=== PATIENT | female | born 1965 | race Caucasian/White ===

== ENCOUNTER → 2023-10-17 07:46 | Outpatient (REF) | payer OTHER, SELFPAY | LOC: HWRAD 07:46 | PROVIDERS: ATTENDING PHYSICIAN Physician Assistant Medical | DX: R10.11 Right upper quadrant pain (principal); M25.50 Pain in unspecified joint | CPT/HCPCS: 76700 ==

== ENCOUNTER → 2023-11-28 07:39 | Outpatient (REF) | payer OTHER, SELFPAY | LOC: HWRAD 07:39 | PROVIDERS: ATTENDING PHYSICIAN Internal Medicine Rheumatology; FAMILY PHYSICIAN Physician Assistant Medical | DX: R59.1 Generalized enlarged lymph nodes (principal); R79.82 Elevated C-reactive protein (CRP); M19.90 Unspecified osteoarthritis, unspecified site; M79.643 Pain in unspecified hand | CPT/HCPCS: 73130; 76536 ==

== ENCOUNTER 2024-01-11 12:02 | Emergency (ER) | payer OTHER, SELFPAY ==
[2024-01-11 12:06] VITALS: BP 164/99
[2024-01-11 13:00] VITALS: BP 127/87
--- NOTE | 2024-01-11 13:10 | ED.GENMED ---
History of Present Illness
General
Chief Complaint: Abdominal Pain
Source: patient
Time Seen by Provider: 01/11/24 12:56
History of Present Illness
History of Present Illness:
58yo female with a history of ALDAIR on CPAP, anxiety, and degenerative disc disease presenting for evaluation of left rib pain x 4-5 days. She reports a sharp, stabbing pain underneath her left breast. Pain radiates to the LUQ, L upper back, and L
upper chest. Pain worsens with breathing and palpation. She denies any injury to the area. No prior history of similar pains. She tried Flexeril without any relief. She is also experiencing indigestion. She is otherwise asymptomatic and denies any
fevers, chills, vomiting, dysuria, diarrhea, constipation.
Past History
Past History
ED Past Medical History: None
ED Past Surgical History: Other (laparoscopy for endometriosis )
Social History
Tobacco: Former smoker
Alcohol: Chronic alcoholic
Drug: None
Personal:
Living: with family
Employment: Employed
Family History
Family History: Other (non contributory )
Phy Exam
Physical Exam
Physical Exam:
+Reproducible tenderness in L anterior and posterior ribcage. No skin changes or crepitus. Lungs CTA bilaterally. +Mild tenderness in LUQ.
General Physical Exam
General Presentation: well appearing and no apparent distress
General age: appears stated age
General Skin: warm and dry
General Habitus: normal
General Mental: alert
Cardiovascular Exam
Cardiovascular Exam: regular rate/rhythm
Heart Sounds: normal
Pulmonary Exam
Pulmonary Exam: lungs clear, no respiratory distress, no crackles and no wheezing
Gastrointestinal Exam
Gastrointestinal Exam: soft and non distended
Palpation: left upper quadrant: Mild tenderness
Course
Orders/Labs/Results
Orders:
Orders
01/11/24 12:11
ECG [Electrocardiogram (*1)] Urgent
Reason for Study: Chest Pain
EKG- Treatment ONCE
01/11/24 13:09
Ketorolac [Toradol] 15 mg IV NOW STA
01/11/24 13:10
Cardiac Monitoring- Treatment ONCE
CR Chest - 2 Views Urgent
Comment:
Reason For Exam: L rib pain
01/11/24 14:25
Basic Metabolic Panel Routine
Complete Blood Count/With Diff Urgent
D-Dimer Urgent
Lipase Urgent
Troponin I Urgent
01/11/24 14:57
CMP [Comprehensive Metabolic Panel] Urgent
Phosphorus Urgent
Comment: ADDON
Abnormal Lab Results
01/11/24 01/11/24
14:25 14:57
RBC 3.54 L 10^6/uL
(4.20-5.40)
Hct 34.1 L %
(37.0-47.0)
MCH 34.2 H pg
(27.0-31.0)
Phosphorus 5.3 H mg/dl
(2.5-4.5)
01/11/24 14:25
01/11/24 14:57
Vital Signs
Initial and Last Documented VS:
Initial Vital Signs
Temp Pulse Resp BP Pulse Ox
97.8 F 81 20 164/99 100
01/11/24 12:06 01/11/24 12:06 01/11/24 12:06 01/11/24 12:06 01/11/24 12:06
Last Documented Vital Signs
Temp Pulse Resp BP Pulse Ox
97.8 F 74 13 143/89 96
01/11/24 12:06 01/11/24 16:00 01/11/24 16:00 01/11/24 16:00 01/11/24 16:00
MDM/Problems Addressed
Differential Diagnosis Includes:
58yoF here with L rib/LUQ pain x 4-5 days. Pain is worse with breathing. Also c/o indigestion. She is afebrile and hemodynamically stable. She is well appearing in no distress. There is reproducible tenderness in the L ribcage on exam. No skin
changes present. Lungs CTA bilaterally. Differential diagnosis includes but is not limited to: Musculoskeletal, pneumonia, pneumothorax, pulmonary embolism, ACS
Initial ED plan: Check cardiac labs, EKG, lipase, D-dimer, and chest x-ray. IV Toradol and reassess.
*Critical Care Note
Total Time (30-74mins, 75-104mins- exclusive of procedures): Not Applicable
Update Note
Update Note:
Workup overall unremarkable. EKG shows normal sinus rhythm without ischemic changes and troponin is normal. D-dimer normal making PE very unlikely. Lipase within normal limits. Chest x-ray clear without acute abnormalities. Patient feeling
significantly improved on reassessment. Given improvement with Toradol and reproducibility of pain, suspect musculoskeletal origin of symptoms. 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
injuries.
Supportive care discussed. Advise follow-up with PCP and return to the ED with any worsening symptoms. Patient expressed understanding and is agreeable to plan. Patient discharged in stable condition.
ED Attending Note
-
Portions of this chart may have been created with voice recognition software.� Occasional wrong word or��sound alike� substitutions may have occurred due to the inherent limitations of voice recognition software.
Discharge Plan
Departure
Patient Disposition: Home (Routine Discharge)
Date of Disposition: 01/11/24
Time of Disposition: 16:10
Patient with high blood pressure during this ER visit?: Yes
Discharge Problem:
Chest wall pain
Instructions: Costochondritis
Prescriptions:
No Action
venlafaxine [Effexor] 75 MG tablet
75 mg PO DAILY
hydroxyzine pamoate [Vistaril] 25 MG capsule
25 mg PO HSPRN PRN (Reason: sleep)
aripiprazole [Abilify] 5 MG tablet
2.5 mg PO DAILY
Referrals:
Ana Tate PA-C [Family Provider] -
Activity Restrictions/Additional Instructions:
Apply heat to affected area. Take ibuprofen 600mg and Tylenol 650mg every 6 hours as needed for pain.
Please follow-up with your family doctor. Return to the ER with any new or worsening symptoms.
Interventions
Interventions:
*Risk Screen - Suicide Last Done: 01/11/24 13:19
*General Assessment Last Done: 01/11/24 12:10
*Neglect/Abuse Screening Last Done: 01/11/24 13:19
ED- Fall Risk Assessment Last Done: 01/11/24 13:19
*ED COVID-19 Vaccine History Last Done: 01/11/24 12:10
*Nursing Disposition Last Done: 01/11/24 16:22
GF-Zxbtfy-Fmfyqqppey Assessment Last Done: 01/11/24 13:19
Discharge Date and Time
Discharge Date/Time: 01/11/24 16:22
Print Language: MALAY
[2024-01-11 13:19] VITALS: BMI 35.5
[2024-01-11 14:06] VITALS: BP 145/94
[2024-01-11] MEDS: TORADOL 15 MG IV (14:28)
[2024-01-11 14:35] LABS: % Basophils 0.6 % (0-2); % Eosinophils 1.3 % (0-6); % Immature Granulocytes 0.2 % (0-0.5); % Lymphocytes 23.9 % (20.5-51.1); % Monocytes 5.3 % (1.7-9.3); % Neutrophils 68.7 % (42.2-75.2); Absolute Eosinophils 0.1 10^3/uL (0-0.7); Absolute Lymphocytes 1.5 10^3/uL (1.2-3.4); Absolute Monocytes 0.3 10^3/uL (0.1-0.6); Absolute Neutrophils 4.3 10^3/uL (1.4-6.5); Hematocrit 34.1 % (37.0-47.0); Hemoglobin 12.1 g/dL (12.0-16.0); Mean Corp Hgb Conc. 35.5 g/dL (33.0-37.0); Mean Corpuscular Hgb 34.2 pg (27.0-31.0); Mean Corpuscular Volume 96.3 fL (81.0-99.0); Mean Platelet Volume 9.5 fL (7.4-10.4); Nucleated Red Blood Cells % 0 %; Platelet Count 217 10^3/uL (130-400); Red Blood Cell Count 3.54 10^6/uL (4.20-5.40); Red Cell Dist. Width 12.7 % (11.5-14.5); White Blood Cell Count 6.2 10^3/uL (4.8-10.8)
[2024-01-11 14:56] LABS: Lipase 67 U/L (23-300)
[2024-01-11 14:58] LABS: Blood Urea Nitrogen 9 mg/dl (7-17); Calcium 10.1 mg/dl (8.4-10.2); Carbon Dioxide 27 mmol/L (22-30); Chloride 104 mmol/L (98-107); Estimated Creatinine Clearance 93 ml/min; Glucose 88 mg/dl (70-99); Potassium 4.1 mmol/L (3.5-5.1); Sodium 135 mmol/L (135-145); Troponin I < 0.012 ng/ml; eGFR > 60.00
[2024-01-11 15:00] VITALS: BP 144/96
[2024-01-11 15:08] LABS: D-Dimer < 0.27 ug/mlFEU (0.00-0.50)
[2024-01-11 15:29] LABS: ALT (SGPT) 26 U/L (0-35); AST (SGOT) 30 U/L (14-36); Albumin 4.1 g/dl (3.5-5.0); Alkaline Phosphatase 83 U/L (38-126); Blood Urea Nitrogen 10 mg/dl (7-17); Calcium 10.2 mg/dl (8.4-10.2); Carbon Dioxide 27 mmol/L (22-30); Chloride 104 mmol/L (98-107); Estimated Creatinine Clearance 93 ml/min; Glucose 86 mg/dl (70-99); Potassium 4.3 mmol/L (3.5-5.1); Sodium 136 mmol/L (135-145); Total Bilirubin 0.5 mg/dl (0.2-1.3); Total Protein 6.3 g/dl (6.3-8.2); eGFR > 60.00
[2024-01-11 15:44] LABS: Phosphorus 5.3 mg/dl (2.5-4.5)
[2024-01-11 16:00] VITALS: BP 143/89
== END 2024-01-11 16:22 | disposition home or self-care (01) ==
LOC: EMR 12:02
PROVIDERS: Physician Assistant; EMERGENCY PHYSICIAN Student in an Organized Health Care Education/Training Program; FAMILY PHYSICIAN Physician Assistant Medical
DX: R07.89 Other chest pain (principal); F41.9 Anxiety disorder, unspecified; G47.33 Obstructive sleep apnea (adult) (pediatric); Z87.891 Personal history of nicotine dependence
CPT/HCPCS: 99283; 96374; 71046; 80048; 80053; 83690; 84100; 84484; 85025; 85379; 93005

== ENCOUNTER → 2024-01-15 11:49 | Outpatient (REF) | payer OTHER, SELFPAY | LOC: HWWDC 11:49 | PROVIDERS: ATTENDING PHYSICIAN Physician Assistant Medical | DX: Z12.31 Encounter for screening mammogram for malignant neoplasm of breast (principal) | CPT/HCPCS: 77063; 77067 ==

== ENCOUNTER → 2024-03-12 09:00 | Outpatient (REF) | payer OTHER, SELFPAY ==
[2024-03-12 10:28] LABS: % Basophils 0.6 % (0-2); % Eosinophils 0.3 % (0-6); % Immature Granulocytes 0.7 % (0-0.5); % Lymphocytes 21.3 % (20.5-51.1); % Monocytes 4.2 % (1.7-9.3); % Neutrophils 72.9 % (42.2-75.2); Absolute Immature Granulocytes 0.1 10^3/uL (0-0.05); Absolute Lymphocytes 1.5 10^3/uL (1.2-3.4); Absolute Monocytes 0.3 10^3/uL (0.1-0.6); Absolute Neutrophils 5.2 10^3/uL (1.4-6.5); Hematocrit 33.5 % (37.0-47.0); Hemoglobin 11.8 g/dL (12.0-16.0); Mean Corp Hgb Conc. 35.2 g/dL (33.0-37.0); Mean Corpuscular Volume 96.5 fL (81.0-99.0); Nucleated Red Blood Cells % 0 %; Platelet Count 217 10^3/uL (130-400); Red Blood Cell Count 3.47 10^6/uL (4.20-5.40); Red Cell Dist. Width 13.2 % (11.5-14.5); White Blood Cell Count 7.1 10^3/uL (4.8-10.8)
[2024-03-12 11:04] LABS: Erythrocyte Sed Rate 13 mm/hour (0-20)
[2024-03-12 11:52] LABS: ALT (SGPT) 22 U/L (0-35); AST (SGOT) 29 U/L (14-36); Albumin 4.7 g/dl (3.5-5.0); Alkaline Phosphatase 87 U/L (38-126); Blood Urea Nitrogen 15 mg/dl (7-17); Calcium 9.6 mg/dl (8.4-10.2); Carbon Dioxide 19 mmol/L (22-30); Chloride 105 mmol/L (98-107); Glucose 86 mg/dl (70-99); Potassium 4.3 mmol/L (3.5-5.1); Sodium 140 mmol/L (135-145); Total Bilirubin 0.5 mg/dl (0.2-1.3); Total Protein 6.9 g/dl (6.3-8.2); eGFR > 60.00
[2024-03-12 18:26] LABS: Hepatitis B Surface Antigen Negative (Negative)
[2024-03-12 18:44] LABS: Hepatitis B Core Ab, Total Negative (Negative); Hepatitis B Surface Antibody Negative; Hepatitis C Antibody Negative (Negative)
[2024-03-14 10:37] LABS: Quantiferon Mitogen minus NIL 4.73 IU/mL; Quantiferon TB Gold Plus Negative (Negative)
== END ==
LOC: RAD 09:00
PROVIDERS: ATTENDING PHYSICIAN Internal Medicine Rheumatology; FAMILY PHYSICIAN Physician Assistant Medical; REFERRING PHYSICIAN Internal Medicine Rheumatology
DX: R59.1 Generalized enlarged lymph nodes (principal); R79.82 Elevated C-reactive protein (CRP)
CPT/HCPCS: 36415; 76536; 80053; 85025; 85652; 86140; 86480; 86704; 86706; 86803; 87340

== ENCOUNTER → 2024-05-22 15:38 | Outpatient (REF) | payer OTHER, SELFPAY | LOC: CLAB 15:38 | PROVIDERS: ATTENDING PHYSICIAN Otolaryngology | DX: K11.9 Disease of salivary gland, unspecified (principal) | CPT/HCPCS: 88305 ==

== ENCOUNTER → 2025-01-15 10:00 | Outpatient (REF) | payer OTHER, SELFPAY | LOC: HWWDC 10:00 | PROVIDERS: ATTENDING PHYSICIAN Physician Assistant Medical | DX: Z12.31 Encounter for screening mammogram for malignant neoplasm of breast (principal) | CPT/HCPCS: 77063; 77067 ==

== ENCOUNTER → 2025-04-07 08:03 | Outpatient (REF) | payer OTHER, SELFPAY | LOC: HWRAD 08:03 | PROVIDERS: ATTENDING PHYSICIAN Physician Assistant Medical | DX: Z00.00 Encounter for general adult medical examination without abnormal findings (principal); R10.32 Left lower quadrant pain | CPT/HCPCS: 76700 ==

== ENCOUNTER → 2025-04-22 15:17 | Outpatient (REF) | payer OTHER, SELFPAY | LOC: RAD 15:17 | PROVIDERS: ATTENDING PHYSICIAN Physician Assistant Medical | DX: R10.20 Pelvic and perineal pain unspecified side (principal) | CPT/HCPCS: 74177; Q9967 ==